=== PATIENT | female | born 1990 | race Caucasian/White ===

== ENCOUNTER 2019-08-19 08:17 | Emergency (ER) | payer BC ==
[~2019-08-19] VITALS: Ht 165.1 cm; Wt 170.0 kg
[2019-08-19] MEDS ORDERED: METOPROL TAR100 MG PO (08:45)
[2019-08-19] MEDS ORDERED: LEVOTHYROXIN125 MC1 PO (08:46)
[2019-08-19] MEDS ORDERED: LISINOP/HCTZ1 TA2 PO (08:46)
[2019-08-19] MEDS ORDERED: VITAMIN B-121000 MCG PO (08:48)
[2019-08-19] MEDS ORDERED: FAMOTIDINE10 M1 (08:48)
[2019-08-19 09:04] LABS: HEMATOCRIT 43.7 % (37.0-47.0); HEMOGLOBIN 13.7 g/dl (12.0-16.0); IMMATURE GRANULOCYTES 0.2 % (0.0-5.0); MEAN CELL VOLUME 91.8 fL CALC (80.0-100.0); MEAN CORPUSCULAR HGB 28.8 pG CALC (26.0-32.0); MEAN CORPUSCULAR HGB CONC 31.4 g/L CALC (32.0-36.0); NEUT# 5.16 thou/uL (2.00-7.15); RED BLOOD COUNT 4.76 mill/uL (4.20-5.60); RED CELL DISTRI WIDTH 13.8 % (11.5-15.5)
[2019-08-19 09:26] LABS: ALBUMIN 3.9 g/dL (3.2-5.0); ALKALINE PHOSPHATASE 99 u/l (38-126); ANION GAP 13 (6-22 (CALC)); BILIRUBIN, TOTAL 0.4 mg/dL (0.0-1.4); BUN 10 mg/dL (7-17); BUN/CREATININE RATIO 18 (12-20 (CALC)); CARBON DIOXIDE 30 mmol/l (22-30); CHLORIDE 100 mmol/l (95-108); CREATININE 0.6 mg/dL (0.5-1.0); GFR > 60 ML/MIN (>=60 (CALC)); GFR FOR AFR.AMER. > 60 ML/MIN (>=60 (CALC)); SGOT/AST 41 u/l (14-36); SODIUM 138 mmol/l (137-146); TOTAL PROTEIN 7.9 g/dL (6.3-8.2)
[2019-08-19 09:40] LABS: MYOGLOBIN 27 ng/mL (0 - 62)
[2019-08-19 09:58] LABS: TSH, 3RD GENERATION 3.02 uIU/mL (0.47 - 4.68)
[2019-08-19 10:46] LABS: URINE BILIRUBIN - DIPSTICK NEGATIVE (NEGATIVE); URINE BLOOD DIPSTICK NEGATIVE (NEGATIVE); URINE COLOR YELLOW; URINE GLUCOSE - DIPSTICK NEGATIVE (NEGATIVE); URINE KETONE NEGATIVE (NEGATIVE); URINE LEUK ESTERASE NEGATIVE (NEGATIVE); URINE NITRITE - DIPSTICK NEGATIVE (Negative); URINE PROTEIN - DIPSTICK NEGATIVE (NEG-TRACE); URINE UROBILINOGEN - DIPSTICK 0.2 E.U./dL (0.2)
[2019-08-19 10:49] LABS: BARBITURATES NEGATIVE (NEGATIVE); COCAINE NEGATIVE (NEGATIVE); METHADONE NEGATIVE (NEGATIVE); OXCYCODONE NEGATIVE (NEGATIVE); TRICYLIC ANTIDEPRESSANTS NEGATIVE (NEGATIVE)
[2019-08-19 10:50] LABS: TETRAHYDROCANNABIONOL POSITIVE (NEGATIVE)
[2019-08-19 10:56] LABS: URINE SQUAMOUS EPITHELIAL CELL MODERATE EPI/hpf (0-FEW); URINE WBC 0-2 WBC/hpf (0-5)
[2019-08-19 13:19] VITALS: BP 136/81
== END 2019-08-19 13:19 | disposition home or self-care (01) | DRG 313 ==
LOC: ED 08:17
PROVIDERS: Emergency Medicine
DX: R07.89 Other chest pain (principal); E66.9 Obesity, unspecified; I10 Essential (primary) hypertension; E03.9 Hypothyroidism, unspecified

== ENCOUNTER 2020-12-23 22:17 | Emergency (ER) | payer BC ==
[~2020-12-23 22:17] MED LIST: FAMOTIDINE10 M1; LEVOTHYROXIN125 MC1 PO; LISINOP/HCTZ1 TA2 PO; METOPROL TAR100 MG PO; VITAMIN B-121000 MCG PO
[2020-12-23] MEDS ORDERED: VALTREX1 GM PO (23:41)
[2020-12-23 23:50] VITALS: BP 145/77
== END 2020-12-23 23:50 | disposition home or self-care (01) | DRG 596 ==
LOC: ED 22:17
DX: B02.9 Zoster without complications (principal); I10 Essential (primary) hypertension; E03.9 Hypothyroidism, unspecified